=== PATIENT | female | born 1970 | race Caucasian/White ===

== ENCOUNTER 2023-12-20 14:38 | Outpatient (CLI) | payer BC ==
[2023-12-20 15:13] LABS: Hematocrit 40.1 % (34.9-44.5)
== END 2023-12-20 14:39 | disposition home or self-care (01) ==
LOC: CSHLAB 14:38
PROVIDERS: ATTEND Otolaryngology Plastic Surgery within the Head & Neck
DX: Z01.818 Encounter for other preprocedural examination (principal); J34.3 Hypertrophy of nasal turbinates; J32.4 Chronic pansinusitis
CPT/HCPCS: 85014; 93005; 93010

== ENCOUNTER 2023-12-26 07:41 | Day surgery (SDC) | payer BC ==
[2023-12-20 14:51] VITALS: BMI 35.6
[2023-12-26] MEDS ORDERED: AFRIN NASAL MIST 15 ML BOT ONE (10:06)
[2023-12-26] MEDS ORDERED: fentaNYL 50 mcg/mL 1 mL Vial ONE (10:12)
[2023-12-26] MEDS ORDERED: Lidocaine 1% PF 5 ML VIAL ONE (10:12)
[2023-12-26] MEDS ORDERED: PROPOFOL 0 ML ONE (10:12)
[2023-12-26] MEDS ORDERED: PROPOFOL 20 ML ONE (10:12)
[2023-12-26] MEDS ORDERED: Lidocaine 1% w/Epinephrine 1:200K 30 ML VIAL ONE (10:15)
[2023-12-26] MEDS ORDERED: Ondansetron PF 4 MG/2 ML Vial ONE ×2 (10:58→12:29)
[2023-12-26] MEDS ORDERED: Dexamethasone 20 MG/5 ML VIAL ONE (10:58)
[2023-12-26] MEDS ORDERED: ePHEDrine Sulfate 50 MG/10 ML VIAL ONE (11:06)
[2023-12-26] MEDS ORDERED: HYDROcodone/Acetaminophen 5/325 mg Tablet ONE (12:42)
== END 2023-12-26 13:01 | disposition home or self-care (01) ==
LOC: CSHSDC 07:41
PROVIDERS: ATTEND Otolaryngology Plastic Surgery within the Head & Neck
PROC: 09TL8ZZ Resection of Nasal Turbinate, Via Natural or Artificial Opening Endoscopic (ICD-10-PCS; principal; 2023-12-26)
PROC: 099R8ZZ Drainage of Left Maxillary Sinus, Via Natural or Artificial Opening Endoscopic (ICD-10-PCS; principal; 2023-12-26)
PROC: 09TU8ZZ Resection of Right Ethmoid Sinus, Via Natural or Artificial Opening Endoscopic (ICD-10-PCS; principal; 2023-12-26)
PROC: 09BT8ZZ Excision of Left Frontal Sinus, Via Natural or Artificial Opening Endoscopic (ICD-10-PCS; principal; 2023-12-26)
PROC: 09BS8ZZ Excision of Right Frontal Sinus, Via Natural or Artificial Opening Endoscopic (ICD-10-PCS; principal; 2023-12-26)
PROC: 099Q8ZZ Drainage of Right Maxillary Sinus, Via Natural or Artificial Opening Endoscopic (ICD-10-PCS; principal; 2023-12-26)
PROC: 09TV8ZZ Resection of Left Ethmoid Sinus, Via Natural or Artificial Opening Endoscopic (ICD-10-PCS; principal; 2023-12-26)
DX: J32.4 Chronic pansinusitis (principal); J34.3 Hypertrophy of nasal turbinates; J33.9 Nasal polyp, unspecified; I10 Essential (primary) hypertension; E78.5 Hyperlipidemia, unspecified; E03.9 Hypothyroidism, unspecified; E66.9 Obesity, unspecified; G47.33 Obstructive sleep apnea (adult) (pediatric); J30.1 Allergic rhinitis due to pollen; J30.81 Allergic rhinitis due to animal (cat) (dog) hair and dander; Z68.35 Body mass index [BMI] 35.0-35.9, adult; Z79.890 Hormone replacement therapy; Z79.899 Other long term (current) drug therapy
CPT/HCPCS: J1100; J2405; J2704; J3010